=== PATIENT | female | born 1955 | race Caucasian/White ===

== ENCOUNTER 2022-06-05 15:09 | Inpatient (IN) | payer BC, OTHER ==
[2022-06-05] MEDS ORDERED: Sodium Chloride 0.9% 10 ML Syringe FLUSH PRN (15:18)
[2022-06-05] MEDS ORDERED: Piperacillin/Tazobactam 4.5 GM in Sodium Chloride 0.9% 100 ML IV ONE (15:54)
[2022-06-05] MEDS ORDERED: Sodium Chloride 0.9% 1,000 ML IV ONE (15:55)
[2022-06-05] MEDS ORDERED: Acetaminophen 500 MG Tab PO ONE (16:00)
[2022-06-05] MEDS ORDERED: Docusate Sodium 100 MG Cap PO PRN (22:35)
[2022-06-05] MEDS ORDERED: Ondansetron 4 MG/2 ML SDV IVPUSH PRN (22:35)
[2022-06-05] MEDS ORDERED: Bisacodyl 5 MG Tab PO PRN (22:35)
[2022-06-06] MEDS: Piperacillin/Tazobactam 4.5 GM in Sodium Chloride 0.9% 100 ML IV SCH ×4 (00:11→17:52)
[2022-06-06] MEDS: Acetaminophen 325 MG Tab PO PRN ×2 (04:39→18:24)
[2022-06-06] MEDS: Lisinopril 10 MG Tab PO SCH (10:28)
[2022-06-06] MEDS: Enoxaparin 40 MG/0.4 ML Syringe SUBCUT SCH (10:28)
[2022-06-06] MEDS: Codeine/guaiFENesin 10-100 MG/5 ML Syrup 5 ML Cup PO PRN (12:45)
[2022-06-07] MEDS: Piperacillin/Tazobactam 4.5 GM in Sodium Chloride 0.9% 100 ML IV SCH ×4 (00:40→18:40)
[2022-06-07] MEDS: Codeine/guaiFENesin 10-100 MG/5 ML Syrup 5 ML Cup PO PRN (04:23)
[2022-06-07 06:54] LABS: ANION GAP 10.2 mEq/L (7-13)
[2022-06-07] MEDS: Enoxaparin 40 MG/0.4 ML Syringe SUBCUT SCH (09:53)
[2022-06-07] MEDS: Lisinopril 10 MG Tab PO SCH (09:53)
[2022-06-07] MEDS ORDERED: Ibuprofen 200 MG Tab PO PRN (10:10)
[2022-06-08] MEDS: Piperacillin/Tazobactam 4.5 GM in Sodium Chloride 0.9% 100 ML IV SCH ×3 (00:45→12:50)
[2022-06-08] MEDS: Enoxaparin 40 MG/0.4 ML Syringe SUBCUT SCH (09:14)
[2022-06-08] MEDS: Lisinopril 10 MG Tab PO SCH (09:14)
[2022-06-08] MEDS ORDERED: Loperamide 2 MG Cap PO ONE ×2 (09:44→13:30)
[2022-06-08] MEDS ORDERED: Amoxicillin/Clavulanate K 875-125 MG Tab ONE (12:25)
[2022-06-08] MEDS ORDERED: Amoxicillin/Clavulanate K 875-125 MG Tab PO ONE (13:54)
== END 2022-06-08 13:55 | disposition home or self-care (01) | DRG 179 ==
LOC: DL.ED 15:09 → DL.MS 18:24
PROVIDERS: ADMIT Internal Medicine; ATTEND Internal Medicine
DX: U07.1 COVID-19 (principal); H70.93 Unspecified mastoiditis, bilateral; I10 Essential (primary) hypertension; H66.91 Otitis media, unspecified, right ear; R41.0 Disorientation, unspecified; E66.9 Obesity, unspecified; H91.90 Unspecified hearing loss, unspecified ear; Z86.16 Personal history of COVID-19; Z79.899 Other long term (current) drug therapy; Z68.32 Body mass index [BMI] 32.0-32.9, adult
CPT/HCPCS: 36415; 70450; 71046; 80048; 80053; 80202; 81001; 82140; 83605; 83735; 84145; 84443; 84484; 85025; 86140; 87040; 87086; 93005; 96365; 96366; 99222; 99232; 99238; 99285-25; A9270-GY; J1650; J2543; J3370; J3490; J7030; J7050; U0002